=== PATIENT | male | born 1955 | race Caucasian/White ===

== ENCOUNTER 2024-05-03 18:53 | Emergency (ER) | payer OTHER, SELFPAY ==
[2024-05-03] MEDS ORDERED: NA CHLORIDE 0.9% 1,000 ML ONE ×2 (19:27→20:14)
[2024-05-03 19:32] LABS: Absolute Basophils 0.1 K/uL (0-0.5); Absolute Lymphocytes (CBC) 1.7 K/uL (0.7-4.9); Absolute Monocytes 0.9 K/uL (0.1-1.3); Absolute Neutrophil 8.7 K/uL (1.8-8.0); Basophils % 0.7 % (0-1.3); Eosinophils % 0.3 % (0-4.4); Hematocrit 45.6 % (39.6-49.0); Hemoglobin 14.9 g/dL (13.6-17.9); Lymphocytes % 14.8 % (15.3-44.8); MCH 28.1 pg (27.0-35.0); MCHC 32.7 g/dL (32.0-36.0); MPV 8.7 fL (7.6-11.3); Monocytes % 7.7 % (3.3-12.3); Neutrophils % 76.5 % (41.7-73.7); Nucleated Red Blood Cells % 0.1 % (0-0); Platelets 238 thou/uL (152-406); Red Cell Distribution Width 13.8 % (12.1-15.2)
[2024-05-03 19:44] LABS: Specific Gravity > 1.030 (1.005-1.030); Sqamous Epithelial <5 /HPF (None Seen); Urine Bacteria None Seen /HPF (<20); Urine Bilirubin NEGATIVE (Negative); Urine Blood Negative (Negative); Urine Clarity Clear (Clear); Urine Color Colorless (Yellow); Urine Culture Reflex Order NOT NEEDED; Urine Glucose 4+ (Over) (Negative); Urine Ketones 2+ (Negative); Urine Micro Reflex YN NO BILL MICROSCOPIC; Urine Mucus Slight /HPF (None Seen); Urine Nitrite NEGATIVE (Negative); Urine Protein NEGATIVE (Negative); Urine RBC <5 /HPF (None Seen); Urine Urobilinogen Normal (Normal); Urine WBC <5 /HPF (<5)
--- NOTE | 2024-05-03 19:44 | RAD REPORT ---
EXAM: CT brain without contrast HISTORY: CONFUSED COMPARISON: 09/24/2016 TECHNIQUE: Multiple contiguous axial images were obtained and a CT of the brain without contrast. Sag ittal and coronal reformats were performed. One or more of the following dose reduction techniques were used: Automated exposure control, adjust ment of the mA and/or kV according to patient size, and/or iterative reconstruction. FINDINGS: There is a 5 cm area of diminished density medial right occipital lobe likely relatively recent CVA. Mild brain atrophy with mild periventricular and deep white matter chronic microvascular ischemic changes present. No evidence of midline shift or areas of brain edema. The calvarium is intact. The visualized paranasal sinuses and mastoid air cells are essentially clear . 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 No hemorrhage is evident.
[2024-05-03 19:53] LABS: ALT/SGPT 32 U/L (16-61); AST/SGOT 15 U/L (15-37); Albumin 3.5 g/dL (3.4-5.0); Albumin/Globulin Ratio 0.9 (1.1-1.8); Alkaline Phosphatase 155 U/L (45-117); Anion Gap 13.7 mEq/L (5.0-15.0); BETA HYDROXYBUTYRATE 2.62 mmol/L (0.02-0.27); BUN Blood Urea Nitrogen 16 mg/dL (7-18); Bicarbonate 25 mEq/L (21-32); Bilirubin Total 0.4 mg/dL (0.2-1.0); Globulin 4.1 g/dL (2.3-3.5); Glomerular Filtration Rate 67 ml/min (=/>90); Lipase 34 U/L (13-75); Magnesium 2.2 mg/dL (1.6-2.4); Phosphorus 3.3 mg/dL (2.5-4.9); Potassium 4.7 mEq/L (3.5-5.1); Protein, Total 7.6 g/dL (6.4-8.2); Sodium Level 129 mEq/L (136-145)
[2024-05-03 19:55] LABS: Bilirubin Direct < 0.2 mg/dL (0-0.2); Bilirubin Indirect, Calculated 0.2 mg/dL (0.2-0.8)
[2024-05-03 19:57] LABS: Glucose Level 608 mg/dL (74-106)
[2024-05-03 20:04] LABS: Arterial Blood Carboxyhemoglob 0.7 % (0-1.5); Blood Gas Oxyhemoglobin 25.2 % (94-97); Blood Gas THB 15.5 g/dl (12-18); Blood O2 Saturation 25.9 % (92-98.5)
--- NOTE | 2024-05-03 20:28 | RAD REPORT ---
EXAMINATION: CTA HEAD CLINICAL INDICATION: STROKE ALERT TECHNIQUE: Axial CT images were obtained through the head after intravenous contrast utilizing angiog raphic protocol with 3D post-processing (maximum intensity projection images, volume rendered images and/or shaded surface rendered images). One or more of the following dose reduction technique s were used: Automated exposure control, adjustment of the mA and/or kV according to patient size, and/or iterative reconstruction. Unless otherwise specified, incidental findings do not require dedic ated imaging follow-up. COMPARISON: Same day CT head FINDINGS: ICA: The petrous, cavernous, and supraclinoid segments of the bilateral internal carotid arteries are normal. The ophthalmic artery origins are visualized and normal. The posterior communicating arteries are patent. ANIA: Anterior cerebral arteries are normal bilaterally. The anterior communicating artery is patent. MCA: Middle cerebral arteries are normal bilaterally. 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 Vertebrobasilar: The vertebral arteries are patent. The basilar artery is normal in appearance. 3D images confirm these findings. IMPRESSION: Significant attenuation of flow in the right posterior cerebral artery. Elsewhere, no flow abnormalit y detected.
--- NOTE | 2024-05-03 20:36 | RAD REPORT ---
EXAMINATION: CTA NECK CLINICAL INDICATION: stroke TECHNIQUE: Axial CT images were obtained from the aortic arch to the skull base after intravenous con trast utilizing angiographic protocol with 3D post-processing (maximum intensity projection images, volume rendered images and/or shaded surface rendered images). One or more of the following dose redu ction techniques were used: Automated exposure control, adjustment of the mA and/or kV according to patient size, and/or iterative reconstruction. Unless otherwise specified, incidental findings do not require dedicated imaging follow-up. COMPARISON: Recent CT images FINDINGS: AORTA: The imaged aortic arch is normal. CCA: The common carotid arteries are patent and normal in caliber. ICA/ECA: Moderate mixed plaque is present in both carotid bulbs. Right-sided stenosis estimated at 70 %. Left-sided stenosis estimated at 50%. VERTEBRAL: The cervical vertebral arteries are patent. Left vertebral artery is dominant. SOFT TISSUE: No significant neck soft tissue abnormalities. The visualized lung apices are clear. 3D images confirm these findings. IMPRESSION: Mixed plaque in both carotid bulbs results in bilateral moderate stenosis, greater on the right as de tailed. NASCET criteria used. Mild 0-49% stenosis Moderate 50-69% stenosis Severe 70-99% stenosis
--- NOTE | 2024-05-03 20:52 | ER ---
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 BGL bp READS HIGH. Coronavirus screen: At this time, the client does not indicate any symptoms associated with coronavirus-19. Ebola Screen: No symptoms or risks identified at this time. Initial Sepsis Screen: Does the patient meet any 2 criteria? No. Patient's initial sepsis screen is negative. Does the patient have a suspected source of infection? No. Patient's initial sepsis screen is negative. Risk Assessment: Do you want to hurt yourself or someone else? Patient reports no desire to harm self or others. Onset of symptoms is unknown. 18:54 Method Of Arrival: EMS: [facility] bp 18:54 Acuity: ELMER 3 bp Triage Assessment: 18:55 General: Appears distressed, Behavior is cooperative, appropriate for age, anxious. bp Pain: Complains of pain in head. EENT: No deficits noted. Neuro: Level of Consciousness is awake, alert, obeys commands, Oriented to Appropriate for age. Cardiovascular: No deficits noted. Respiratory: No deficits noted. GI: No signs and/or symptoms were reported involving the gastrointestinal system. : No signs and/or symptoms were reported regarding the genitourinary system. Derm: No deficits noted. Musculoskeletal: No deficits noted. Historical: - Allergies: 18:55 No Known Allergies; bp - Home Meds: 18:55 None [Active]; bp - PMHx: 18:55 None; bp - Immunization history:: Adult Immunizations up to date. - Infectious Disease History:: Denies. - Social history:: Smoking status: Patient denies any tobacco usage or history of. Screenin:57 [facility] ED Fall Risk Assessment (Adult) History of falling in the last 3 months, bp including since admission No falls in past 3 months (0 pts) Confusion or Disorientation No (0 pts) Intoxicated or Sedated No (0 pts) Impaired Gait No (0 pts) Mobility Assist Device Used No (0 pt) Altered Elimination No (0 pt) Score/Fall Risk Level 0 - 2 = Low Risk Oriented to surroundings. Abuse screen: Denies threats or abuse. Denies injuries from another. Nutritional screening: No deficits noted. Tuberculosis screening: No symptoms or risk factors identified. 21:00 [place] Swallow Protocol 3 oz Water Swallow Challenge: Pt able to drink all water without ay stopping, coughing, choking or throat clearing: No. 21:00 [place] Swallow Protocol Exclusion Criteria: Unable to remain alert for testing: No NPO ay for medical/surgical reason by provider order No Tracheostomy tube present No No thin liquids due to preexisting dysphagia/baseline modified diet thickened liquids No Exclusion Criteria Result: Proceed Brief Cognitive Screen What is your name? Normal, Where are you right now? Normal, What year is it? Normal. Oral Mechanism Examination Facial Symmetry: Normal, Motion: Normal, Lip Closure: Normal, Oral Mechanism Result: Normal. Result: PASS. Assessment: 19:10 General: Appears in no apparent distress. uncomfortable. Pain: Denies pain. Neuro: ay Level of Consciousness is awake, alert, obeys commands, Oriented to person, place, time, situation, Reimbursement Consultant are equal bilaterally Gait is unsteady, Speech is normal. Cardiovascular: Denies chest pain, nausea, vomiting, Capillary refill < 3 seconds. Respiratory: Airway is patent Respiratory effort is even, unlabored, Respiratory pattern is regular, symmetrical. GI: Bowel sounds present X 4 quads. : No signs and/or symptoms were reported regarding the genitourinary system. EENT: No signs and/or symptoms were reported regarding the EENT system. Derm: No signs and/or symptoms reported regarding the dermatologic system. 23:54 General: RN to RN report given to SIMONE Josue at [facility]. ay 05/04 00:29 General: picked up by EMS en rout to [facility]. Pt is alert and oriented, no ay distress noted, VSS. Vital Signs: 05/03 18:54 BP 150 / 80; Pulse 80; Resp 16; Temp 98; Pulse Ox 100% ; bp 19:15 BP 134 / 69; Pulse 79; Resp 19; Temp 99.2; Pulse Ox 99% on R/A; ay 20:11 BP 140 / 85; Pulse 85; Resp 17; Pulse Ox 99% ; ay 21:00 BP 138 / 78; Pulse 80; Resp 18; Pulse Ox 100% ; ay 21:15 BP 144 / 73; Pulse 79; Resp 17; Pulse Ox 99% ; ay 21:30 BP 155 / 73; Pulse 83; Resp 20; Pulse Ox 100% ; ay 21:45 BP 146 / 89; Pulse 83; Resp 19; Pulse Ox 99% ; ay 21:57 Weight 86.64 kg; vc1 22:00 BP 128 / 64; Pulse 91; Resp 17; Pulse Ox 98% ; ay 22:15 BP 142 / 69; Pulse 91; Resp 17; Pulse Ox 98% ; ay 23:03 BP 115 / 71; Pulse 90; Resp 18; Pulse Ox 99% ; ay 23:30 BP 119 / 66; Pulse 84; Resp 19; Pulse Ox 100% ; ay 05/04 00:00 BP 117 / 65; Pulse 84; Resp 20; Pulse Ox 100% on R/A; ay [place] Coma Score: 05/03 19:10 Eye Response: spontaneous(4). Motor Response: obeys commands(6). Verbal Response: ay oriented(5). Total: 15. NIH Stroke Scale Scores: 20:00 NIHSS Score: 0 ay 22:05 NIHSS Score: 0 sb4 ED Course: 18:54 Patient arrived in ED. bp 18:54 Margaret Simons PA-C is PHCP. sb4 18:54 Lisa Amanda MD is Attending Physician. sb4 18:55 Triage completed. bp 18:55 Arm band placed on. bp 18:57 Patient has correct armband on for positive identification. bp 19:10 lunchroom monitor on. Pulse ox on. NIBP on. Door closed. Warm blanket given. ay 19:10 EKG done, by ED staff, reviewed by Margaret Simons PA-C. Inserted saline lock: 20 gauge in ay right antecubital area, using aseptic technique. 19:12 Minh Leroy, RN is Primary Nurse. ay 19:36 Head Brain Wo Cont CT In Process Unspecified. EDMS 19:57 Notified Nurse Practitioner and/or Physician Sander Wooden Pencils of a critical lab result(s), me1 glucose 608. 20:05 Attending Physician role handed off by Lisa Amanda MD sp4 20:05 David Godinez MD is Attending Physician. sp4 20:[address] In Process Unspecified. EDMS 20:[address] In Process Unspecified. EDMS 05/04 00:33 Patient transferred, IV remains in place. ay Administered Medications: 05/03 19:28 Drug: NS 0.9% IV 1000 ml IV at 1000 ml once; to be given as a bolus over 60 minutes ay Route: IV; Rate: 1000 ml; Site: right antecubital; 05/04 00:06 Follow up: Response: No adverse reaction ay 00:06 Follow up: IV Status: Completed infusion; IV Intake: 1000ml ay 05/03 20:16 Drug: NS 0.9% IV 1000 ml IV at 1 bolus Per protocol; to be given as a bolus over 60 ay minutes Route: IV; Rate: 1 bolus; Site: right antecubital; 05/04 00:05 Follow up: IV Status: Completed infusion; IV Intake: 1000ml ay 05/03 21:25 Drug: Insulin Regular Human IVP 10 units IVP once {Co-Signature: me1 (vannessa Alonso RN).} Route: IVP; Site: right antecubital; 05/04 00:05 Follow up: Response: No adverse reaction ay 05/03 22:07 Drug: Acetaminophen PO 1000 mg PO once Route: PO; ay 05/04 00:05 Follow up: Response: No adverse reaction ay 05/03 22:07 Drug: Aspirin PO Chewable Tablet 162 mg PO once Route: PO; ay 05/04 00:05 Follow up: Response: No adverse reaction ay 05/03 22:07 Drug: foLIC Acid IVPB 1 mg IVPB once Route: IVPB; Site: right antecubital; ay 05/04 00:04 Follow up: Response: No adverse reaction; IV Status: Completed infusion; IV Intake: ay 1000ml 05/03 22:07 Drug: Atorvastatin PO 40 mg PO once Route: PO; ay 05/04 00:04 Follow up: Response: No adverse reaction ay Intake: 00:04 IV: 1000ml; Total: 1000ml. ay 00:05 IV: 1000ml; Total: 2000ml. ay 00:06 IV: 1000ml; Total: 3000ml. ay Outcome: 05/03 20:52 ER care complete, transfer ordered by . sb4 05/04 00:33 Transferred to [facility] Condition: stable Instructed on the need for transfer, 00:35 Patient left the ED. ay NIH Stroke Scale - NIH Stroke Score Date: 05/03/2024 Time: 20:00 Total Score = 0 10. Dysarthria (speech clarity - read or repeat words) - 0(Normal) 11. Extinction and Inattention (visual/tactile/auditory/spatial/personal) - 0(No abnormality) 1a. Level of Consciousness (LOC) - 0(Alert) 1b. Level of Consciousness (LOC) (Month \T\ Age) - 0(Both) 1c. LOC Commands (Open \T\ Closes Eyes/Assembler Fishing Floats) - 0(Both) 2. Best Gaze (Lateral Gaze Paresis) - 0(Normal) 3. Visual Field Loss - 0(No visual loss) 4. Facial Palsy - 0(Normal) 5a. Left Arm: Motor (10-second hold) - 0(No drift) 5b. Right Arm: Motor (10-second hold) - 0(No drift) 6a. Left Leg: Motor (5-second hold - always test supine) - 0(No drift) 6b. Right Leg: Motor (5-second hold - always test supine) - 0(No drift) 7. Limb Ataxia (finger/nose \T\ heel/love - test with eyes open) - 0(Absent) 8. Sensory Loss (pinprick arms/legs/face) - 0(Normal) 9. Best Language: Aphasia (description/naming/reading) - 0(No aphasia) Initials: ay NIH Stroke Scale - NIH Stroke Score Date: 05/03/2024 Time: 22:05 Total Score = 0 10. Dysarthria (speech clarity - read or repeat words) - 0(Normal) 11. Extinction and Inattention (visual/tactile/auditory/spatial/personal) - 0(No abnormality) 1a. Level of Consciousness (LOC) - 0(Alert) 1b. Level of Consciousness (LOC) (Month \T\ Age) - 0(Both) 1c. LOC Commands (Open \T\ Closes Eyes/Assembler Fishing Floats) - 0(Both) 2. Best Gaze (Lateral Gaze Paresis) - 0(Normal) 3. Visual Field Loss - 0(No visual loss) 4. Facial Palsy - 0(Normal) 5a. Left Arm: Motor (10-second hold) - 0(No drift) 5b. Right Arm: Motor (10-second hold) - 0(No drift) 6a. Left Leg: Motor (5-second hold - always test supine) - 0(No drift) 6b. Right Leg: Motor (5-second hold - always test supine) - 0(No drift) 7. Limb Ataxia (finger/nose \T\ heel/love - test with eyes open) - 0(Absent) 8. Sensory Loss (pinprick arms/legs/face) - 0(Normal) 9. Best Language: Aphasia (description/naming/reading) - 0(No aphasia) Initials: sb4 Signatures: Dispatcher [employer] EDBhavesh Evangelista RN RN Hallie Nixon RN RN 1 Margaret Simons PA-C PA-C sb4 David Godinez MD MD sp4 Denisse Alonso RN RN me1 Minh Leroy RN RN ay Eddleman, Michelle RN me1 Corrections: (The following items were deleted from the chart) 05/03 20:12 20:10 Inserted saline lock: 22 gauge in right antecubital area, using aseptic me1 technique. me1 20:12 20:06 Initial lab(s) drawn, by sd, sent to lab. First set of blood cultures me1 drawn by , me1 05/04 00:08 00:06 [place] Swallow Protocol 3 oz Water Swallow Challenge: Pt able to drink all ay water without stopping, coughing, choking or throat clearing: No ay
--- NOTE | 2024-05-03 20:52 | EDPHYS ---
Physician Documentation [facility] Name: Antonio Jeffrey Age: 69 yrs Sex: Male : 1955 Arrival Date: 05/03/2024 Time: 18:53 Bed 19 Private MD: ED Physician David Godinez HPI: 05/03 18:58 This 69 yrs old Male presents to ER via EMS with complaints of High Blood Sugar. sb4 18:58 says patient has been disoriented today. He was acting strangely at [employer] so EMS sb4 was called. Patient is A\T\Ox4 but is unclear of the events that happened today. EMS checked his blood sugar and it read high. Patient denies any history of diabetes. He does state that he has been fatigued, been thirsty, and peeing more than usual. Historical: - Allergies: 18:55 No Known Allergies; bp - Home Meds: 18:55 None [Active]; bp - PMHx: 18:55 None; bp - Immunization history:: Adult Immunizations up to date. - Infectious Disease History:: Denies. - Social history:: Smoking status: Patient denies any tobacco usage or history of. ROS: 18:58 Constitutional: Negative for fever, chills, and weight loss, sb4 18:58 Neuro: Positive for visual changes, Confusion, 18:58 Endocrine: Positive for polydipsia, polyphagia, polyuria, 18:58 All other systems are negative, Exam: 18:58 Head/Face: Normocephalic, atraumatic. Eyes: Extra-ocular motions intact. Periorbital sb4 areas with no swelling, redness, or edema. ENT: Mucous membranes moist. Cardiovascular: Regular rate and rhythm with a normal S1 and S2. Respiratory: No increased work of breathing, no retractions or nasal flaring. Abdomen/GI: Soft, non-tender, no distension. Skin: Warm, dry with normal turgor. Normal color with no rashes, no lesions, and no evidence of cellulitis. 18:58 Constitutional: The patient appears alert, awake, smells of ketones, Vital Signs: 18:54 BP 150 / 80; Pulse 80; Resp 16; Temp 98; Pulse Ox 100% ; bp 19:15 BP 134 / 69; Pulse 79; Resp 19; Temp 99.2; Pulse Ox 99% on R/A; ay 20:11 BP 140 / 85; Pulse 85; Resp 17; Pulse Ox 99% ; ay 21:00 BP 138 / 78; Pulse 80; Resp 18; Pulse Ox 100% ; ay 21:15 BP 144 / 73; Pulse 79; Resp 17; Pulse Ox 99% ; ay 21:30 BP 155 / 73; Pulse 83; Resp 20; Pulse Ox 100% ; ay 21:45 BP 146 / 89; Pulse 83; Resp 19; Pulse Ox 99% ; ay 21:57 Weight 86.64 kg; vc1 22:00 BP 128 / 64; Pulse 91; Resp 17; Pulse Ox 98% ; ay 22:15 BP 142 / 69; Pulse 91; Resp 17; Pulse Ox 98% ; ay 23:03 BP 115 / 71; Pulse 90; Resp 18; Pulse Ox 99% ; ay 23:30 BP 119 / 66; Pulse 84; Resp 19; Pulse Ox 100% ; ay 05/04 00:00 BP 117 / 65; Pulse 84; Resp 20; Pulse Ox 100% on R/A; ay NIH Stroke Scale Scores: 05/03 20:00 NIHSS Score: 0 ay 22:05 NIHSS Score: 0 sb4 Dipak Coma Score: 19:10 Eye Response: spontaneous(4). Motor Response: obeys commands(6). Verbal Response: ay oriented(5). Total: 15. MDM: 18:54 Medical Screening Exam initiated sb4 20:58 Data reviewed: vital signs, nurses notes, EMS record, lab test result(s), EKG, sb4 radiologic studies, I have discussed the patient's presentation/case with the attending Emergency Department Physician;. Counseling: I had a detailed discussion with the patient and/or guardian regarding the historical points, exam findings, and any diagnostic results supporting the discharge/admit diagnosis, lab results, radiology results, the need to transfer to another facility. 22:59 ED course: Patient was initially thought to be confused/altered secondary to elevated sb4 blood sugar readings/DKA as blood sugar on accu check read high and he had ketotic breath. He had no focal neurologic deficits on his examination. I did order head CT to ensure there were no other etiologies contributing. CT did reveal an acute versus subacute CVA which I was NOT notified about by radiology, therefore the complete stroke up workup was delayed. Code stroke was called by me shortly after I read the CT report. I called radiologist, Dr Delaney, to verify and he did in fact confirm the head CT was positive for CVA. Last known well was about 24 hours ago so patient would not have been a TNK candidate. Will transfer to [facility] for further neurologic workup and possible neurosurgical intervention.. 05/03 18:58 Order name: BETA HYDROXYBUTYRATE; Complete Time: 19:58 sb4 05/03 18:58 Order name: Basic Metabolic Panel; Complete Time: 19:58 sb4 05/03 18:58 Order name: CBC with Diff; Complete Time: 19:35 sb4 05/03 18:58 Order name: Hepatic Function; Complete Time: 19:58 sb4 05/03 18:58 Order name: Lipase; Complete Time: 19:58 sb4 05/03 18:58 Order name: Magnesium; Complete Time: 19:58 sb4 05/03 18:58 Order name: Phosphorus; Complete Time: 19:58 sb4 05/03 18:58 Order name: ABG; Complete Time: 20:08 sb4 05/03 18:58 Order name: UAM; Complete Time: 19:45 sb4 05/03 21:21 Order name: Glucose, Ancillary Testing; Complete Time: 21:29 EDMS 05/03 23:40 Order name: Glucose, Ancillary Testing; Complete Time: 23:42 EDMS 05/03 18:58 Order name: Head Brain Wo Cont CT; Complete Time: 20:38 sb4 05/03 20:02 Order name: Head Angio CT; Complete Time: 20:38 sb4 05/03 20:02 Order name: Neck Angio CT; Complete Time: 20:38 sb4 05/03 18:58 Order name: EKG; Complete Time: 18:58 sb4 05/03 18:58 Order name: Cardiac monitoring; Complete Time: 21:26 sb4 05/03 18:58 Order name: EKG - Nurse/Tech; Complete Time: 21:25 sb4 05/03 18:58 Order name: IV Saline Lock; Complete Time: 20:11 sb4 05/03 18:58 Order name: NPO; Complete Time: 20:11 sb4 05/03 18:58 Order name: O2 Per Protocol; Complete Time: 20:11 sb4 05/03 18:58 Order name: O2 Sat Monitoring; Complete Time: 20:11 sb4 EC:07 Rate is 79 beats/min. Rhythm is regular, Normal Sinus Rhythm. HI interval is normal at sb4 176 msec. QRS interval is normal at 88 msec. QT interval is normal at 420 msec. Clinical impression: No evidence of ischemia. Interpreted by me. Reviewed by me. Administered Medications: 19:28 Drug: NS 0.9% IV 1000 ml IV at 1000 ml once; to be given as a bolus over 60 minutes ay Route: IV; Rate: 1000 ml; Site: right antecubital; 05/04 00:06 Follow up: Response: No adverse reaction 00:06 Follow up: IV Status: Completed infusion; IV Intake: 1000ml ay 05/03 20:16 Drug: NS 0.9% IV 1000 ml IV at 1 bolus Per protocol; to be given as a bolus over 60 ay minutes Route: IV; Rate: 1 bolus; Site: right antecubital; 05/04 00:05 Follow up: IV Status: Completed infusion; IV Intake: 1000ml ay 05/03 21:25 Drug: Insulin Regular Human IVP 10 units IVP once {Co-Signature: me1 (vannessa Alonso RN).} Route: IVP; Site: right antecubital; 05/04 00:05 Follow up: Response: No adverse reaction 05/03 22:07 Drug: Acetaminophen PO 1000 mg PO once Route: PO; 05/04 00:05 Follow up: Response: No adverse reaction 05/03 22:07 Drug: Aspirin PO Chewable Tablet 162 mg PO once Route: PO; 05/04 00:05 Follow up: Response: No adverse reaction 05/03 22:07 Drug: foLIC Acid IVPB 1 mg IVPB once Route: IVPB; Site: right antecubital; ay 05/04 00:04 Follow up: Response: No adverse reaction; IV Status: Completed infusion; IV Intake: ay 1000ml 05/03 22:07 Drug: Atorvastatin PO 40 mg PO once Route: PO; 05/04 00:04 Follow up: Response: No adverse reaction ay Disposition: 20:37 Co-signature as Attending Physician, David Godinez MD I agree with the assessment sp4 and plan of care. I reviewed the patient's care provided by the Advanced Practice Provider and agree with the diagnosis and treatment plan. 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 Dysarthria (speech clarity - read or repeat words) - 0(Normal) 11. Extinction and Inattention (visual/tactile/auditory/spatial/personal) - 0(No abnormality) 1a. Level of Consciousness (LOC) - 0(Alert) 1b. Level of Consciousness (LOC) (Month \T\ Age) - 0(Both) 1c. LOC Commands (Open \T\ Closes Eyes/Cost Estimating Clerk) - 0(Both) 2. Best Gaze (Lateral Gaze Paresis) - 0(Normal) 3. Visual Field Loss - 0(No visual loss) 4. Facial Palsy - 0(Normal) 5a. Left Arm: Motor (10-second hold) - 0(No drift) 5b. Right Arm: Motor (10-second hold) - 0(No drift) 6a. Left Leg: Motor (5-second hold - always test supine) - 0(No drift) 6b. Right Leg: Motor (5-second hold - always test supine) - 0(No drift) 7. Limb Ataxia (finger/nose \T\ heel/love - test with eyes open) - 0(Absent) 8. Sensory Loss (pinprick arms/legs/face) - 0(Normal) 9. Best Language: Aphasia (description/naming/reading) - 0(No aphasia) Initials: ay NIH Stroke Scale - NIH Stroke Score Date: 05/03/2024 Time: 22:05 Total Score = 0 10. Dysarthria (speech clarity - read or repeat words) - 0(Normal) 11. Extinction and Inattention (visual/tactile/auditory/spatial/personal) - 0(No abnormality) 1a. Level of Consciousness (LOC) - 0(Alert) 1b. Level of Consciousness (LOC) (Month \T\ Age) - 0(Both) 1c. LOC Commands (Open \T\ Closes Eyes/Cost Estimating Clerk) - 0(Both) 2. Best Gaze (Lateral Gaze Paresis) - 0(Normal) 3. Visual Field Loss - 0(No visual loss) 4. Facial Palsy - 0(Normal) 5a. Left Arm: Motor (10-second hold) - 0(No drift) 5b. Right Arm: Motor (10-second hold) - 0(No drift) 6a. Left Leg: Motor (5-second hold - always test supine) - 0(No drift) 6b. Right Leg: Motor (5-second hold - always test supine) - 0(No drift) 7. Limb Ataxia (finger/nose \T\ heel/love - test with eyes open) - 0(Absent) 8. Sensory Loss (pinprick arms/legs/face) - 0(Normal) 9. Best Language: Aphasia (description/naming/reading) - 0(No aphasia) Initials: sb4 Signatures: Dispatcher [employer] EDMS Bhavesh Funez, SIMONE RN bp Lisa Amanda MD MD sp3 Margaret Simons PA-C PA-C sb4 David Godinez MD MD sp4 Minh Leroy RN RN ay Eddleman, Michelle RN me1 Corrections: (The following items were deleted from the chart) 00:35 05/03 20:52 neuro sb4 ay 05/04 00:39 05/03 22:59 ED course: Patient was initially thought to be confused/altered sb4 secondary to elevated blood sugar readings. He had no focal neurologic deficits on his examination. I did order head CT to ensure there were no other etiologies contributing. CT did reveal an acute versus subacute CVA which I was not notified about, therefore the complete stroke up workup was delayed. Last known well was about 24 hours so patient would not have been a TNK candidate. Will transfer to [facility] for further neurologic workup and possible neurosurgical intervention. sb4 05/04 00:40 05/03 22:59 ED course: Patient was initially thought to be confused/altered sb4 secondary to elevated blood sugar readings/DKA as blood sugar on accu check read high and he had ketotic breath. He had no focal neurologic deficits on his examination. I did order head CT to ensure there were no other etiologies contributing. CT did reveal an acute versus subacute CVA which I was NOT notified about by radiology, therefore the complete stroke up workup was delayed. Code stroke was called by me shortly after I read the CT report. I called radiologist, Dr Delaney, to verify and he did in fact confirm the head CT was positive for CVA. Last known well was about 24 hours so patient would not have been a TNK candidate. Will transfer to [facility] for further neurologic workup and possible neurosurgical intervention.. sb4
[2024-05-03] MEDS ORDERED: INSULIN REGULAR (HUMAN) 100 UNIT/ML ONE (21:18)
[2024-05-03] MEDS ORDERED: ASPIRIN 81 MG CHEWABLE TABLET ONE (21:57)
[2024-05-03] MEDS ORDERED: FOLIC ACID 5 MG/ML VIAL ONE (21:58)
[2024-05-03] MEDS ORDERED: ATORVASTATIN 40 MG TAB ONE (21:58)
[2024-05-03] MEDS ORDERED: ACETAMINOPHEN 500 MG TAB ONE (21:59)
[2024-05-05 11:54] VITALS: TEMP 99.2
[2024-05-05 12:09] VITALS: O2SAT 100
[2024-05-05 12:11] VITALS: BP 117/65
--- NOTE | 2024-05-08 12:19 | EKG ---
Test Date: 2024-05-03 Test Time: 20:34:39 Director Athletic: CONNOR MEASUREMENT RESULTS: Intervals: Rate: 79 DC: 176 QRSD: 88 QT: 420 QTc: 481 Nimitz: P: 69 DC: 176 QRS: 63 T: 112 INTERPRETIVE STATEMENTS: Normal sinus rhythm Possible Inferior infarct, age undetermined Anteroseptal infarct, age undetermined T wave abnormality, consider lateral ischemia Abnormal ECG Compared to ECG 09/24/2016 10:10:44 Myocardial infarct finding now present T-wave abnormality now present Possible ischemia now present Electronically Signed On 05-08-24 12:13:26 WIRE SPIRAL BINDER by Wilfredo Champion
== END 2024-05-04 00:35 | disposition short-term general hospital (02) ==
LOC: ER 18:53
DX: I63.331 Cerebral infarction due to thrombosis of right posterior cerebral artery (principal); E11.65 Type 2 diabetes mellitus with hyperglycemia; R29.700 NIHSS score 0
CPT/HCPCS: 96365; 96361; 93005; 85025; 81001; 80048; 36415; 83735; 84100; 82947 ×2; 80076; 83690; 82010; 70450; 70496; 70498; 82805; 96375; 99285; 96366; 36600; Q9967; J7030 ×2

== ENCOUNTER 2024-05-14 14:26 | Inpatient (IN) | payer OTHER ==
[2024-05-14 16:16] VITALS: BMI 29.0
[2024-05-14] MEDS ORDERED: ACETAMINOPHEN 500 MG TAB PO PRN (16:25)
[2024-05-14] MEDS ORDERED: D10W 125 ML IV PRN (17:23)
[2024-05-14] MEDS ORDERED: GLUCAGON 1 MG/VIAL IM PRN (17:23)
[2024-05-14] MEDS ORDERED: MELATONIN 3 MG TABLET PO PRN (18:20)
[2024-05-14 19:09] LABS: Specific Gravity 1.022 (1.005-1.030); Sqamous Epithelial <5 /HPF (None Seen); Urine Bacteria None Seen /HPF (<20); Urine Bilirubin NEGATIVE (Negative); Urine Blood Negative (Negative); Urine Clarity Clear (Clear); Urine Color Light-Yellow (Yellow); Urine Culture Reflex Order NOT NEEDED; Urine Glucose 4+ (Over) (Negative); Urine Ketones NEGATIVE (Negative); Urine Micro Reflex YN NO BILL MICROSCOPIC; Urine Nitrite NEGATIVE (Negative); Urine Protein NEGATIVE (Negative); Urine RBC <5 /HPF (None Seen); Urine Urobilinogen Normal (Normal); Urine WBC <5 /HPF (<5)
[2024-05-14] MEDS: ATORVASTATIN 80 MG TAB PO SCH (20:20)
[2024-05-14] MEDS: APIXABAN 2.5 MG TABLET PO SCH (20:20)
[2024-05-14] MEDS: DOCUSATE NA/SENNA CONC 1 TAB PO SCH (20:21)
[2024-05-14] MEDS ORDERED: INSULIN REGULAR (HUMAN) 100 UNIT/ML SQ SCH (21:00)
[2024-05-15 05:07] LABS: Absolute Basophils 0.1 K/uL (0-0.5); Absolute Eosinophils 0.1 K/uL (0-0.5); Absolute Lymphocytes (CBC) 1.8 K/uL (0.7-4.9); Absolute Monocytes 0.8 K/uL (0.1-1.3); Absolute Neutrophil 3.4 K/uL (1.8-8.0); Basophils % 1.2 % (0-1.3); Eosinophils % 2.2 % (0-4.4); Hematocrit 34.9 % (39.6-49.0); Hemoglobin 11.5 g/dL (13.6-17.9); Lymphocytes % 28.7 % (15.3-44.8); MCH 28.5 pg (27.0-35.0); MCV 86.4 fL (80-100); MPV 7.8 fL (7.6-11.3); Monocytes % 13.5 % (3.3-12.3); Neutrophils % 54.4 % (41.7-73.7); Nucleated Red Blood Cells % 0.1 % (0-0); Platelets 223 thou/uL (152-406); RBC Red Blood Cell Count 4.04 M/uL (4.33-5.43); Red Cell Distribution Width 14.4 % (12.1-15.2)
[2024-05-15 05:30] LABS: Albumin 2.9 g/dL (3.4-5.0); Anion Gap 5.2 mEq/L (5.0-15.0); Potassium 4.2 mEq/L (3.5-5.1); Prealbumin 16.8 mg/dL (20-40)
[2024-05-15] MEDS ORDERED: HOME MED 1 EA UNK SQ SCH (07:30)
[2024-05-15] MEDS ORDERED: INSULIN REGULAR (HUMAN) 100 UNIT/ML SQ SCH ×2 (07:30)
--- NOTE | 2024-05-15 07:37 | RAD REPORT ---
EXAM: XR of the abdomen HISTORY: Abdominal pain Constipation COMPARISON: None FINDINGS: XR of the abdomen shows a nonspecific, nonobstructive bowel gas pattern. Significant stool is seen retained in the colon. No suspicious calcifications are seen. The bones are unremarkable. IMPRESSION: Moderate constipation.
[2024-05-15] MEDS ORDERED: ASPIRIN EC 81 MG TAB PO SCH (08:00)
[2024-05-15] MEDS ORDERED: INSULIN GLARGINE 100 UNIT/ML SQ SCH (08:00)
[2024-05-15] MEDS: ASPIRIN EC 81 MG TAB PO SCH (08:03)
[2024-05-15] MEDS: INSULIN LISPRO 100 UNIT/1 ML SQ SCH (08:38)
[2024-05-15] MEDS: INSULIN GLARGINE 100 UNIT/ML SQ SCH (08:38)
--- NOTE | 2024-05-16 00:39 | HP ---
Date of Admission: 05/14/2024 Time Of Service: 1 p.m. Chief Complaint: "I have problems with vision. I am bumping into things." History Of Present Illness: Mr. 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 He had develope d worsening vision changes, would bump into things on the left side, hit his arm on tables and chairs and doorway, and could not see people until he turns his head to the left. He came in with 5 days o f such changes to [facility] and was found to have blood sugar of 608, but not in diabetic k etoacidosis. Hyponatremia down to 129. CT scan of the head showed an indeterminate age right application systems administrator ior cerebral artery infarct, and there was significant attenuation on the angiogram of the right post erior cerebral artery. The internal carotid and external carotid arteries showed moderate mixed plaq ue in both bulbs. Right-sided stenosis estimated at 70%; on the left side of 50%. He did receive IV fluids, insulin, and corrected blood sugars with some improvement in mentation; however, he still co ntinued to have significant left visual field deficits and is at risk of falling, unable to negotiate corners and stairways and up and down ramps without significant difficulty. He is at a contact guar d assistance level for ambulation, transfers, including activities of daily living like showering, dr essing, and donning and doffing footwear as well as going up and down steps. As he is fun ctioning well below his baseline and is at high risk of significant injury, he is now in inpatient re habilitation for aggressive therapy to help him to return towards an independent level and do well. Past Medical History: Type 2 diabetes mellitus and of course his stroke. Allergies: NO KNOWN DRUG ALLERGIES. Medications: Tylenol 500 mg every 4 hours as needed, Eliquis 2.5 mg twice daily, aspirin 81 mg daily , Lipitor 80 mg at bedtime, Glucagon as needed, Semglee insulin 30 units subcutaneously daily, lispro insulin 10 units subcutaneously in the morning, melatonin 3 mg at bedtime, Senokot-S 2 at bedtime. Laboratory Studies: White blood cell count 6.2, hemoglobin 11.5, platelets are 223. Sodium 138, pot assium 4.2, chloride 108, carbon dioxide 29, BUN 10, creatinine 0.81, glucose ranged from 86 up to 29 6. Calcium 8.9, magnesium 2.2, albumin 2.9. Prealbumin 16.8. His urinalysis shows 4+ glucose. Glu cose was otherwise unremarkable. X-ray/imaging: CT angiogram showed moderate stenosis at left vertebral artery origin and mild arthrosclerotic disease, bilateral carotid bifurcations. His CT of the head did show a right po sterior cerebral artery stroke. His neck, again 70% stenosis of the left and 50% stenosis of the rig ht carotid bulb. There was chronic infarct in the left posterior cerebellar hemisphere. Transthorac ic echocardiogram, ejection fraction 55%. Normal study. Family History: Noncontributory. Social History: No alcohol, tobacco, or drug use. Review of Systems: Aside from mentioned above, no fevers, chills, nausea, vomiting, myalgias, arthralgias, rash. Some d ifficulty with of course the vision. Weight change is not present. No unexplained changes. Current Level Of Functioning: Currently, he is setup assistance for eating. Grooming and bathing, m oderate assistance. Upper body dressing, supervision. Lower body dressing, moderate assistance. To ileting, supervision. Transfer from bed to wheelchair to toilet, supervision. Ambulation 160 feet w ith contact guard assistance. Physical Examination: Vital Signs: Blood pressure is 136/73, pulse 68, respiratory rate 17, temperature 98.0, oxygen satur ation 99%. Weight 197 pounds, height 5 feet 9 inches, BMI 29.1. General: Mr. Jeffrey is lying in his bed, waiting for therapy. HEENT: He is normocephalic, atraumatic. Sclerae anicteric. Oropharynx pink and moist. Neck: Supple. Chest: Clear. Heart: Regular. Extremities: Show no clubbing, cyanosis, or edema. Neurological: Subtle decrease of the left nasolabial fold with good excursions on smiling. His reuben est deficit is a left homonymous hemianopsia that is pretty dense in all the visions on the left for both eyes. Otherwise, no other cranial nerve deficits. Motor: Upper and lower extremities 5/5. Se nsation intact, upper and lower extremities. Coordination, limited by his visual field deficits. Re flexes symmetric. Gait, good stance and stride. Rehab And Medical Assessment And Plan: Mr. Jeffrey is a 69-year-old, admitted to rehabilitation unit with impairment category 01, stroke. His impairment group code is 01.1, left body involvement, right brain. 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 In addition to decr eased mobility and decreased physical functioning, he has poorly controlled diabetes mellitus and mil d slurred speech. Plan: 1. He will have physical, occupational, and speech therapy 3.5 hours, 5 of 7 days. 2. We will continue with aggressive management of his blood sugars and adjust insulin as appropriate. We will continue aspirin 81 mg daily for stroke risk reduction, Eliquis 2.5 mg twice daily for DVT risk reduction, Semglee insulin as needed for diabetes along with lispro, melatonin for insomnia, Sen okot for constipation, Tylenol for pain. Comorbidities That Are Impacting Rehabilitation: His big issue is left homonymous hemianopsia, which makes it very difficult for him to ambulate around corners and stairs. He will have to retool his t hinking about turning constantly to look to the left to avoid hitting objects. At this point, he esau l be unable to drive a car. Subsequently, the patient may visit the information and data architect analyst and have prism l enses put on the left side of the glasses to help him see objects that are in the left visual field. Rehab Specific Plan: Mr. Jeffrey will have physical, occupational, and speech therapy 3.5 hours, 5 of 7 days to improve his ability to transfer to a chair, to a rolling walker. Mobilize from a chair to rolling walker, and may be possible also without an assistive device or quad cane. He will have Spe ech to help him with processing his left visual field deficits, address any swallowing issues and cog nitive issues to help improve his safety awareness. He will have Occupational Therapy to help with h is dressing of upper and lower body, maintaining his balance and coordination as he is engaging in ac tivities of daily living. Mr. Jeffrey has a good understanding of the process of admission to the inpatient rehabilitation unit and how he will benefit from physical, occupational, and speech therapy. He will have 24 hours a day , 7 days a week skilled rehabilitation nursing; daily physician evaluation and management; and Mechanical Artist evaluation and management for discharge planning, home equipment, and for continuing physic al therapy at discharge. If need be, additional help from the hospitalist service will be sought. Barriers To Discharge: Currently, the patient is the primary caregiver for his who is 10 years older. However, he is in no position at this point to care for his and if he is at home will yasmine arce have a difficult time . He may require an extended stay in the assisted depend ing on how he is doing and his recovery. Plan is, however, to be able to go home. Length Of Stay: About 10 to 12 days. Disposition: Expected to be home with continued therapy via Home Health. Prognosis: Good. Code Status: Full Code. Rehab Specific Goals: 1. Become independent with upper and lower body dressing, donning and doffing footwear. 2. Independently transfer from bed to chair to toilet/shower. 3. Independently perform all activities of daily living. 4. Independently ambulate 250 feet with a rolling walker. 5. Independently go up and down 10 steps with bilateral handrails. 6. Independently ambulate with a quad cane or no assistive device 250 feet. 7. Independently perform cognitive functioning. The above goals were reviewed with Mr. Jeffrey who is in agreement. By signing this document, I acknowledge that I personally performed a full physical examination on Mr Christoph Jeffrey no later than 24 hours after his admission to the inpatient rehabilitation unit and determin ed that he is able to tolerate the above course of treatment at an intensive level for a reasonable p eriod of time. A detailed individualized plan of care for him will be completed by hospital day 4 based on the preadmission screen, history and phy sical, and therapy evaluations. MINH Voice ID: [id number]
[2024-05-16] MEDS: INSULIN GLARGINE 100 UNIT/ML SQ SCH (07:53)
[2024-05-16] MEDS ORDERED: BISACODYL 10 MG RECTAL SUPP PR PRN (13:09)
[2024-05-16] MEDS ORDERED: SIMETHICONE 80 MG CHEWABLE TAB PO PRN (18:07)
[2024-05-16] MEDS: DOCUSATE NA/SENNA CONC 1 TAB PO SCH (19:48)
--- NOTE | 2024-05-17 00:50 | PN ---
Date of Progress Note: 05/16/2024 Time Of Service: 1:10 p.m. Subjective: Mr. Jeffrey is resting comfortably in bed. Still has dense left homonymous hemianopsia a nd is feeling fairly well about his therapy so far, although he would like to recover much faster. Review of Systems: No fevers, chills, nausea, vomiting. No significant myalgias, arthralgias, or rash. Physical Examination: Vital Signs: Blood pressure 138/74, pulse 71, respiratory rate 16, temperature 98.2, oxygen saturati on 96%. General: Mr. Jeffrey is resting comfortably in bed. Neuro: Does have again the left homonymous hemianopsia. No new deficits identified. Laboratory Studies: His blood sugars ranged from 83 to 194. X-ray/imaging: No new x-rays or imaging studies done. Medications: Medications have been reviewed. He is continuing Tylenol 500 mg every 4 hours as neede d, Eliquis 2.5 mg twice daily, aspirin 81 mg daily, Lipitor 80 mg at bedtime. He takes Semglee insul in 30 units subcutaneously daily. He has lispro 10 units subcutaneously in the morning, melatonin 3 mg at night, Senokot 2 tablets twice daily, simethicone 80 mg every 6 hours as needed for gas pain. Progress Made With Physical And Occupational Therapy: With physical therapy today, he was able to wo rk on ergometer and bicycle and did very well for about 15 minutes and did so without a rest break. He ambulated 320 feet, 250 feet with a rolling walker with contact guard standby assistance. He is a ble to go up and down 11 steps with 1 sided handrail each side. Assessment: Mr. Jeffrey is a 69-year-old patient in rehabilitation unit with a stroke impacting his r ight posterior cerebral artery producing left homonymous hemianopsia, some mild dysarthria, dysphagia , and difficulty with his communication. Although he has a stroke, he is actually doing well with hi s therapy. Comorbidities, decreased mobility, decreased physical functioning, impaired blood glucose along with his constipation, dyslipidemia, risk of deep vein thrombus. Plan: We will continue with his physical and occupational therapy. We will continue with all his li st of comorbid condition medications as indicated. MARILY/BLADIMIR Voice ID: [id number] Report ID: [id number]
[2024-05-17] MEDS ORDERED: INSULIN LISPRO 100 UNIT/1 ML SQ SCH (16:30)
[2024-05-17] MEDS: INSULIN LISPRO 100 UNIT/1 ML SQ SCH (17:26)
--- NOTE | 2024-05-18 00:51 | PN ---
Date of Progress Note: 05/17/2024 Time Of Service: 1:10 p.m. Subjective: Mr. Jeffrey is resting comfortably in bed. He still has his left homonymous hemianopsia and no new findings. Still bumping into objects on the left side unless they are pointed out to him. Review of Systems: He denies any fevers, chills, nausea, vomiting, myalgias, arthralgias, rash. Physical Examination: Vital Signs: Blood pressure 111/70, pulse 76, respiratory rate 16, temperature 98.5, oxygen saturati on 96%. Neuro: He does have again the left homonymous hemianopsia. No other changes on his examination. Laboratory Studies: Blood sugars ranged from 68 to 153. X-ray/imaging: No new x-rays or imaging. Medications: Medications have been reviewed and are unchanged. Progress Made With Physical And Occupational Therapy: Today with physical therapy, supine to sit tra nsfers done independently, performed sit to stand transfers independently. Also, he was able to ambu late 375 feet, 500 feet, and 120 feet with standby assistance using a rolling walker. He was able to go up and down on uneven surfaces, ramps, curves, and the elevator 1500 feet. He ambulated with con tact guard assistance. He ascended and descended 22 steps with bilateral handrails with contact guar d assistance. With occupational therapy, he performed toileting independently, showering supervision level, needed some help wiping the buttocks and perineal area. He is actually doing well enough and does not require speech. Assessment: Mr. 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 He still has mild decreased mobility, decreased physical functioning, an d risk for deep vein thrombosis, dyslipidemia, neuropathic pain, diabetes mellitus, and insomnia. Plan: We will continue with physical, occupational therapy 3 hours a day, 5 of 7 days. He has his c omorbid medications continued including for DVT prophylaxis, blood sugar management. He did have res olution of abdominal bloating from gas and pain is managed with Tylenol. LB/MODL Voice ID: [id number] Report ID: [id number]
[2024-05-18 06:38] LABS: Absolute Basophils 0.1 K/uL (0-0.5); Absolute Eosinophils 0.2 K/uL (0-0.5); Absolute Monocytes 0.9 K/uL (0.1-1.3); Absolute Neutrophil 4.5 K/uL (1.8-8.0); Basophils % 1.1 % (0-1.3); Eosinophils % 2.1 % (0-4.4); Hematocrit 38.5 % (39.6-49.0); Hemoglobin 12.7 g/dL (13.6-17.9); Lymphocytes % 26.4 % (15.3-44.8); MCH 28.2 pg (27.0-35.0); MCHC 33.1 g/dL (32.0-36.0); MCV 85.2 fL (80-100); MPV 8.3 fL (7.6-11.3); Monocytes % 11.8 % (3.3-12.3); Neutrophils % 58.6 % (41.7-73.7); Nucleated Red Blood Cells % 0.1 % (0-0); Platelets 246 thou/uL (152-406); RBC Red Blood Cell Count 4.51 M/uL (4.33-5.43); Red Cell Distribution Width 14.4 % (12.1-15.2)
[2024-05-18 07:10] LABS: Anion Gap 9.1 mEq/L (5.0-15.0); Potassium 4.1 mEq/L (3.5-5.1); Prealbumin 17.3 mg/dL (20-40)
--- NOTE | 2024-05-18 23:21 | PN ---
Date of Progress Note: 05/18/2024 Time Of Service: 1:10 p.m. Subjective: Mr. Jeffrey is resting comfortably in bed. He says he still of course has his left visua l field deficit, but he is ambulating well, making very good strides in terms of recovery. Review of Systems: He denies any fevers, chills, nausea, vomiting. Of course, the left visual field deficit still prese nt. Physical Examination: Vital Signs: Blood pressure 133/67, pulse 77, respiratory rate 16, temperature 97.4, O2 saturation 9 7%. General: Mr. Jeffrey is resting comfortably in bed. Neuro: He has no new focal deficits, just the left homonymous hemianopsia. Strength; upper and lowe r extremities symmetric. Sensation intact, upper and lower extremities. Laboratory Studies: White blood cell count is 7.7, hemoglobin 12.7, platelets 246. His sodium 136, potassium 4.1, BUN 18, creatinine 0.77. His glucose ranged from 97 to 173, calcium 9.9, magnesium of 2.0, prealbumin 17.3. Progress Made With Physical And Occupational Therapy: With physical therapy today, he did supine-to- sit transfers independently, multiple thead-fd-cvhcw transfers done independently. He ambulated 500 feet and 125 feet independently with a rolling walker. He was able to go about 22 steps with bilater al handrails independently and also was able to walk on uneven surfaces on multiple types of side and site covering 2500 feet with contact guard assistance. With occupational therapy, independent with functional transfers and mobility, independent with toileting, upper body dressing, lower body dressi ng, oral hygiene, did very well. Assessment: Mr. Jeffrey is a 69-year-old patient with a stroke affecting his right posterior cerebral artery causing left homonymous hemianopsia, but he still is doing excellent in terms of physical, oc cupational, and cognition. Plan: We will continue with physical and occupational therapy 3 hours a day, 5 of 7 days. Continue with management of his dyslipidemia with Lipitor. Stroke risk reduction with aspirin, DVT risk reduc tion with Eliquis, and glucagon and Semglee for his diabetes mellitus, melatonin for insomnia, Senoko t-S for his constipation, Mylicon for gas. LB/MODL Voice ID: [id number] Report ID: [id number]
--- NOTE | 2024-05-19 14:17 | P.RH.PN ---
Estimated Length of Stay: 10 Expected Discharge Date: 05/23/24 Discharge Disposition Plan: Home Family Support: Yes Senior Care Goal: Mobility, Transfers, Self Care Vital Signs: Last Vital Signs Temp 97.9 F 05/19/24 06:40 Pulse 67 05/19/24 06:40 Resp 16 05/19/24 06:40 BP 120/55 L 05/19/24 06:40 Pulse Ox 98 05/19/24 06:40 Laboratory: Laboratory Last Values WBC 7.70 thou/uL (4.3-10.9) 05/18/24 05:53 RBC 4.51 M/uL (4.33-5.43) 05/18/24 05:53 Hgb 12.7 g/dL (13.6-17.9) L 05/18/24 05:53 Hct 38.5 % (39.6-49.0) L 05/18/24 05:53 MCV 85.2 fL (80-100) 05/18/24 05:53 MCH 28.2 pg (27.0-35.0) 05/18/24 05:53 MCHC 33.1 g/dL (32.0-36.0) 05/18/24 05:53 RDW 14.4 % (12.1-15.2) 05/18/24 05:53 Plt Count 246 thou/uL (152-406) 05/18/24 05:53 MPV 8.3 fL (7.6-11.3) 05/18/24 05:53 Neutrophils % 58.6 % (41.7-73.7) 05/18/24 05:53 Lymphocytes % 26.4 % (15.3-44.8) 05/18/24 05:53 Monocytes % 11.8 % (3.3-12.3) 05/18/24 05:53 Eosinophils % 2.1 % (0-4.4) 05/18/24 05:53 Basophils % 1.1 % (0-1.3) 05/18/24 05:53 Absolute Neutrophils 4.5 K/uL (1.8-8.0) 05/18/24 05:53 Absolute Lymphocytes 2.0 K/uL (0.7-4.9) 05/18/24 05:53 Absolute Monocytes 0.9 K/uL (0.1-1.3) 05/18/24 05:53 Absolute Eosinophils 0.2 K/uL (0-0.5) 05/18/24 05:53 Absolute Basophils 0.1 K/uL (0-0.5) 05/18/24 05:53 Sodium 136 mEq/L (136-145) 05/18/24 05:53 Potassium 4.1 mEq/L (3.5-5.1) 05/18/24 05:53 Chloride 105 mEq/L (98-107) 05/18/24 05:53 Carbon Dioxide 26 mEq/L (21-32) 05/18/24 05:53 Anion Gap 9.1 mEq/L (5.0-15.0) 05/18/24 05:53 BUN 18 mg/dL (7-18) 05/18/24 05:53 Creatinine 0.71 mg/dL (0.70-1.30) 05/18/24 05:53 Est GFR (CKD-EPI) 100 ml/min (=/>90) 05/18/24 05:53 Glucose 154 mg/dL (74-106) H 05/18/24 05:53 POC Glucose 78 mg/dL (65-120) 05/19/24 11:19 Calcium 9.0 mg/dL (8.5-10.1) 05/18/24 05:53 Magnesium 2.0 mg/dL (1.6-2.4) 05/18/24 05:53 Albumin 3.0 g/dL (3.4-5.0) L 05/18/24 05:53 Prealbumin 17.3 mg/dL (20-40) L 05/18/24 05:53 Urine Color Light-yellow (Yellow) 05/14/24 18:55 Urine Clarity Clear (Clear) 05/14/24 18:55 Urine pH 7.0 (5.0-7.0) 05/14/24 18:55 Ur Specific [place] 1.022 (1.005-1.030) 05/14/24 18:55 Glucose (UA)(Auto) 4+ (over) (Negative) H 05/14/24 18:55 Urine Ketones Negative (Negative) 05/14/24 18:55 Urine Blood Negative (Negative) 05/14/24 18:55 Urine Nitrite Negative (Negative) 05/14/24 18:55 Urine Bilirubin Negative (Negative) 05/14/24 18:55 Urine Urobilinogen Normal (Normal) 05/14/24 18:55 Ur Leukocyte Esterase Negative Tiago/uL (Negative) 05/14/24 18:55 Urine RBC <5 /HPF (None Seen) 05/14/24 18:55 Urine WBC <5 /HPF (<5) 05/14/24 18:55 Ur Squamous Epith Cells <5 /HPF (None Seen) 05/14/24 18:55 U Non-Squamous Epi Cells <5 /HPF (None Seen) 05/14/24 18:55 Urine Bacteria None seen /HPF (<20) 05/14/24 18:55 Urine Culture Reflexed Not needed 05/14/24 18:55 Urine Total Protein Negative (Negative) 05/14/24 18:55 Weight: 197 lb Wound Present: No Closed Surgical Incision Present: No Negative Pressure Wound Therapy Present: No Physician Update: Labs are stable. BIMS 15, he has not significant pain. Left sided neglect with loss of left visual novak bilaterally. He is near to independent. Bed mobility, 500' without assistive device and 2500' and 22 stairs with one handrail. Met all OT goals and is independent. 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 Please see the Rehabilitation Signature page for all necessary signatures.
[2024-05-22 09:33] LABS: Absolute Basophils 0.1 K/uL (0-0.5); Absolute Eosinophils 0.1 K/uL (0-0.5); Absolute Lymphocytes (CBC) 1.8 K/uL (0.7-4.9); Absolute Monocytes 0.6 K/uL (0.1-1.3); Basophils % 0.9 % (0-1.3); Hematocrit 41.5 % (39.6-49.0); Hemoglobin 13.4 g/dL (13.6-17.9); Lymphocytes % 23.7 % (15.3-44.8); MCH 27.9 pg (27.0-35.0); MCHC 32.2 g/dL (32.0-36.0); MCV 86.5 fL (80-100); MPV 7.7 fL (7.6-11.3); Monocytes % 8.1 % (3.3-12.3); Neutrophils % 66.3 % (41.7-73.7); Nucleated Red Blood Cells % 0.1 % (0-0); Platelets 266 thou/uL (152-406); Red Cell Distribution Width 14.9 % (12.1-15.2)
[2024-05-22 09:47] LABS: Albumin 3.5 g/dL (3.4-5.0); Anion Gap 7.2 mEq/L (5.0-15.0); Magnesium 2.1 mg/dL (1.6-2.4); Potassium 4.2 mEq/L (3.5-5.1); Prealbumin 20.3 mg/dL (20-40)
--- NOTE | 2024-05-23 01:09 | PN ---
Date of Progress Note: 05/22/2024 Time Of Service: 1:10 p.m. Subjective: Mr. Jeffrey is sitting at the side of his bed. He is feeling somewhat better with staff. He still has significant issues in terms of the left homonymous hemianopsia which is very dense and has not improved. Objective: No fevers, chills, nausea, vomiting, myalgias, or arthralgias. Physical Examination: Vital Signs: Blood pressure range 105 to 128 over 50 to 78, pulse of 70 to 76, respiratory rate 16 t o 20, temperature 98.1, oxygen saturation 100%. General: Mr. Jeffrey again is sitting comfortably. He is in no acute distress. HEENT: He is normocephalic, atraumatic. Sclerae anicteric. Oropharynx pink, moist. Still has dens e left homonymous hemianopsia. Laboratory Studies: Complete blood count with differential is normal. Hemoglobin is 10.3. Chemistr ies normal. Sodium 137, potassium 4.2, chloride 108, carbon dioxide 26, BUN 16, creatinine 0.82, glu cose ranged from 81 to 177, calcium 9.1, magnesium 2.1, albumin 3.5, prealbumin 20.3. X-ray/imaging: No new x-rays or imaging. Medications: Medications have been reviewed and remain unchanged. Progress Made With Physical, Occupational, And Speech Therapy: With physical therapy today, he did s ldzsq-ba-xop transfers independently, multiple oxekh-ef-[id number] transfers done independently. He ambul ated 1000 feet, 750 feet twice, another 500 feet, all independently, going up and down 44 steps with bilateral handrails in an excellent fashion. With his occupational therapy, did do functional transf ers independently, did shower and was all independent. Oral hygiene, upper and lower body dressing, donning and doffing footwear all independent. Assessment: Mr. 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 He has very minimal decreased mobility, decreased physical functioning, an d is doing very excellent with physical and occupational therapy. His additional comorbidities will include dyslipidemia, risk of deep vein thrombosis, insomnia, and some mild constipation and abdomina l bloating, which have all improved. Plan: We will continue with physical and occupational therapy until his discharge. He will be disch arged in the morning, continued as an outpatient therapy. Follow up with Dr. Jorge Luis Geiger, for yareli sm lenses in the left side to help him with retracting objects in the left visual field. He is disch arged in the morning as noted. MARILY/BLADIMIR Voice ID: [id number] Report ID: [id number]
[2024-05-23 06:57] VITALS: BP 130/66; TEMP 97.8
== END 2024-05-23 10:25 | disposition home or self-care (01) | DRG 57 ==
LOC: 5TH 16:10
PROVIDERS: ADMIT Psychiatry & Neurology Neurology with Special Qualifications in Child Neurology; ATTEND Psychiatry & Neurology Neurology with Special Qualifications in Child Neurology
DX: I69.354 Hemiplegia and hemiparesis following cerebral infarction affecting left non-dominant side (principal); I69.328 Other speech and language deficits following cerebral infarction; E11.65 Type 2 diabetes mellitus with hyperglycemia; K59.00 Constipation, unspecified; H53.462 Homonymous bilateral field defects, left side; E78.5 Hyperlipidemia, unspecified; R14.0 Abdominal distension (gaseous); G47.00 Insomnia, unspecified
CPT/HCPCS: 36415; 74018; 80048; 81001; 82040; 82947; 83735; 84134; 85025; 87086; 87088; 92523; 97110; 97112; 97116; 97163; 97165; 97530